=== PATIENT | male | born 1975 | race Caucasian/White ===

== ENCOUNTER 2023-07-18 15:10 | Emergency (ER) | payer MEDICAID ==
[~2023-07-18] VITALS: Ht 167.6 cm; Wt 104.3 kg
[2023-07-18 15:37] VITALS: BP 165/93; PULSE 86; RESP 16; TEMP 97.4; O2SAT 96
[2023-07-18 16:01] LABS: APPEARANCE,URINE CLEAR (CLEAR); BILIRUBIN,URINE 2+ (NEGATIVE); BLOOD, URINE 2+ (NEGATIVE); COLOR,URINE YELLOW (YELLOW); LEUKOCYTE ESTERASE ,URINE 1+ (NEGATIVE); NITRITE, URINE NEGATIVE (NEGATIVE); PROTEIN,URINE TRACE (NEGATIVE); UGLUCOSE NEGATIVE (NEGATIVE)
[2023-07-18 16:30] LABS: BACTERIA,URINE 10-30 (MOD) /HPF (None Seen); ICTOTEST NEGATIVE (NEGATIVE); SQUAMOUS EPITHELIAL CELL,UR 0-3 (FEW) /LPF (0-3 (FEW)); WBC,URINE 16-25 (MOD) /HPF (0-5)
[2023-07-18 17:01] VITALS: BP 148/88; PULSE 85; RESP 17; TEMP 97.4; O2SAT 96
[2023-07-18] MEDS ORDERED: CIPR500T4 PO (17:30)
[2023-07-18] MEDS ORDERED: ACET-503 PO (17:30)
[2023-07-18] MEDS ORDERED: IBUP-2213 PO (17:30)
== END 2023-07-18 17:36 | disposition home or self-care (01) ==
LOC: MED 15:10
DX: N39.0 Urinary tract infection, site not specified (principal); N50.9 Disorder of male genital organs, unspecified; I10 Essential (primary) hypertension; Z72.89 Other problems related to lifestyle
CPT/HCPCS: 76870; 81001; 87086; 87491; 99284; Q0092